=== PATIENT | male | born 1995 | race Caucasian/White ===

== ENCOUNTER 2016-06-05 19:26 | Emergency (ER) | payer OTHER ==
[2016-06-05] MEDS ORDERED: LIDOCAINE 2% MDV 20 ML VIAL As Ordered ONE (22:14)
--- NOTE | 2016-06-05 23:19 | EDDOCDS ---
Nurse's Notes [facility] Name: Claudio Rueda Age: 20 yrs Sex: Male : 1995 Arrival Date: 06/05/2016 Time: 19:26 Bed PD Private MD: Other - Complete Info On Cds Diagnosis: Laceration without foreign body of left thumb with damage to nail Presentation: 06/05 19:38 Presenting complaint: Patient states: using kitchen knife to open a box at approx 1830 jjr causing laceration to left thumb. Adult Sepsis Screening: The patient does not have new or worsening altered mentation. Patient's respiratory rate is less than 22. Systolic blood pressure is greater than 100. Patient has a qSOFA score of 0- Negative Sepsis Screen. Suicide/Homicide risk assessment- the patient denies having any suicidal and/or homicidal ideations and does not present with any other emotional, behavioral or mental health complaints. Status: The patient is an active duty environmental services manager. Transition of care: patient was not received from another setting of care. 19:38 Acuity: ZOYA Level 4 jjr 19:38 Method Of Arrival: Walkin/Carried/Asstd jjr Triage Assessment: 19:40 General: Appears in no apparent distress. Pain: Location: dorsal aspect of proximal jjr phalanx of left thumb. Pt Declines HIV testing. Musculoskeletal: Capillary refill < 3 seconds in left fingers. Historical: - Allergies: no known allergies; - Home Meds: 1. none - PMHx: none; - PSHx: none; - Social history: Smoking status: Patient states was never smoker of tobacco. No barriers to communication noted, The patient speaks fluent Kazakh. - Family history: Not pertinent. - : The pt / caregiver states he / she is not on anticoagulants. Home medication list is obtained from the patient. - Exposure Risk Screening:: None identified. Screenin:18 Screening information is obtained from the patient. Fall risk: No risks identified. ko2 Assistance ADL's: requires no assistance with activities of daily living. Abuse/DV Screen: The patient / caregiver reports he/she is: not in a situation that causes fear, pain or injury. Nutritional screening: No deficits noted. Advance Directives: Currently, there is no health care proxy. There is no active DNR order. There is no living will. There is no Power of Body Shop Worker. home support is adequate. Assessment: 23:00 General: Appears in no apparent distress, Behavior is cooperative. Neurological: Level ko2 of Consciousness is awake, alert. Respiratory: Airway is patent Respiratory effort is even, unlabored. Musculoskeletal: Range of motion limited in left hand. Vital Signs: 19:28 BP 143 / 77; Pulse 79; Resp 18 S; Temp 97.3(O); Pulse Ox 99% on R/A; Weight 88.45 kg gr2 (R); Height 6 ft. 1 in. (185.42 cm) (R); Pain 4/10; 22:36 BP 127 / 65; Pulse 64; Resp 16; Temp 96.8(T); Pulse Ox 98% on R/A; Pain 3/10; rw1 19:28 Body Mass Index 25.73 (88.45 kg, 185.42 cm) gr2 Vitals: 19:28 Log In Time: June 05, 2016 at 19:28. gr2 ED Course: 19:27 Patient visited by Francisco Javier Rivera. gr2 19:27 Patient moved to Waiting gr2 19:28 Other - Complete Info On Cds is Private Physician. gr2 19:29 Patient visited by Francisco Javier Rivera. gr2 19:30 Patient moved to Pre RCE gr2 19:39 Triage Initiated jjr 20:41 Patient moved to Radiology tmb 20:49 Patient moved to Pre RCE tmb 21:56 Claudio Steinberg PA is PHCP. mo1 21:56 Pernell Grande DO is Attending Physician. mo1 21:56 Patient moved to Triage 3 ko2 22:03 Patient visited by Vivian Guerrero RN. ko2 22:03 Patient moved to PD2 / ko2 22:05 Patient visited by Claudio Steinberg PA. mo1 22:51 [facility] Payment Agreement was scanned into [email or web address] and attached to record. gjb 23:18 The patient / caregiver is instructed regarding the plan of care and ED course. ko2 23:18 No IV's were initiated during this patient's visit. No procedures done that require ko2 assistance. Administered Medications: 22:35 Drug: Lidocaine 10 ml [lidocaine 20 mg/mL (2 %) injection solution (10 mL)] {Note: adm. rw1 by provider.} Route: Infiltration; 22:36 Follow up: Response: Pt left department before re-evaluation is appropriate rw1 Order Results: There are currently no results for this order. Outcome: 22:31 Discharge ordered by Provider. mo1 23:18 Discharge Assessment: Patient awake, alert and oriented x 3. No cognitive and/or ko2 functional deficits noted. Patient verbalized understanding of disposition instructions. patient administered narcotics - no. The following High Risk Discharge criteria are identified: None. Discharged to home ambulatory, with significant other. Condition: stable. Discharge instructions given to patient, Instructed on discharge instructions, follow up and referral plans. Demonstrated understanding of instructions, Pt was receptive of discharge instructions/ teaching. No special radiology studies were completed. Property sent home with patient. 23:19 Patient left the ED. ko2 Signatures: Paul Kellogg,INTERFACE ENGINEER INTERFACE ENGINEER rw1 Donna Rivera, RN Francisco Javier Dorado Michael, PA PA mo1 Oral Zaidi Kari, RN RN ko2 Eve Johnson [facility]
--- NOTE | 2016-06-05 23:19 | EDDOCDS ---
Physician Documentation [facility] Name: Claudio Rueda Age: 20 yrs Sex: Male : 1995 Arrival Date: 06/05/2016 Time: 19:26 Bed PD Private MD: Other - Complete Info On Cds Disposition: 06/05/16 22:31 Discharged to Home/Self Care. Impression: Laceration without foreign body of left thumb with damage to nail. - Condition is Stable. - Discharge Instructions: Laceration Care, Adult. - Medication Reconciliation, Local Pharmacy Hours form. - Follow up: Private Physician; When: Call to arrange an appointment; Reason: Recheck today's complaints, Continuance of care. - Problem is new. - Symptoms are unchanged. - Notes: sutures removed in 2 wks, do not bend thumb at risk of breaking sutures Historical: - Allergies: no known allergies; - Home Meds: 1. none - PMHx: none; - PSHx: none; - Social history: Smoking status: Patient states was never smoker of tobacco. No barriers to communication noted, The patient speaks fluent Gibraltarian. - Family history: Not pertinent. - : The pt / caregiver states he / she is not on anticoagulants. Home medication list is obtained from the patient. - Exposure Risk Screening:: None identified. Vital Signs: 06/05 19:28 BP 143 / 77; Pulse 79; Resp 18 S; Temp 97.3(O); Pulse Ox 99% on R/A; Weight 88.45 kg / gr2 195 lbs (R); Height 6 ft. 1 in. (185.42 cm) (R); Pain 4/10; 22:36 BP 127 / 65; Pulse 64; Resp 16; Temp 96.8(T); Pulse Ox 98% on R/A; Pain 3/10; rw1 19:28 Body Mass Index 25.73 (88.45 kg, 185.42 cm) gr2 Procedures: 22:33 Laceration repair:. mo1 Laceration: 22:33 Wound Repair of 3cm ( 1.2in ) full thickness laceration to dorsal aspect of proximal mo1 phalanx of left thumb. Distal neuro/vascular/tendon intact. Anesthesia: Local anesthetic administered with 2 mls of 2% lidocaine. Wound prep: Extensive cleansing with betadine by provider. Skin closed with 5 x 4-0 Prolene using Simple interrupted sutures. Dressed with Bacitracin. Patient tolerated well. MDM: 20:37 Fingers Ordered. EDMS 22:06 Lidocaine 20 mg/mL (2 %) 10 ml Infiltration once; to bedside ordered. mo1 22:31 Splint Affected Extremity ordered. mo1 22:51 [facility] Payment Agreement was scanned into [employer] and attached to record. gjb 22:51 Financial registration complete. gjb Administered Medications: 22:35 Drug: Lidocaine 10 ml [lidocaine 20 mg/mL (2 %) injection solution (10 mL)] {Note: adm. rw1 by provider.} Route: Infiltration; 22:36 Follow up: Response: Pt left department before re-evaluation is appropriate rw1 Signatures: Dispatcher [employer] EDDonna Haas, RN RN Claudio Way PA PA mo1 Vivian Guerrero RN RN koEve Metcalf Robert LPN rw1 The chart was reviewed and I authenticate all verbal orders and agree with the evaluation and treatment provided.Attachments: 22:51 [facility] Payment Agreement gjb MTDD
--- NOTE | 2016-06-06 07:47 | REP ---
Clinical: Trauma. Technique: AP, lateral, bilateral oblique views of the left first digit. Findings: No obvious acute fracture or dislocation. No subcutaneous emphysema or radiodense foreign body. Impression: No obvious acute fracture or dislocation. Signed by Jatin Velez MD 06/06/2016 07:38 A
--- NOTE | 2016-06-08 00:20 | EDDOCDS ---
Physician Documentation [facility] Name: Claudio Rueda Age: 20 yrs Sex: Male : 1995 Arrival Date: 06/05/2016 Time: 19:26 Bed PD Private MD: Other - Complete Info On Cds Disposition: 06/05/16 22:31 Discharged to Home/Self Care. Impression: Laceration without foreign body of left thumb with damage to nail. - Condition is Stable. - Discharge Instructions: Laceration Care, Adult. - Medication Reconciliation, Local Pharmacy Hours form. - Follow up: Private Physician; When: Call to arrange an appointment; Reason: Recheck today's complaints, Continuance of care. - Problem is new. - Symptoms are unchanged. - Notes: sutures removed in 2 wks, do not bend thumb at risk of breaking sutures Historical: - Allergies: no known allergies; - Home Meds: 1. none - PMHx: none; - PSHx: none; - Social history: Smoking status: Patient states was never smoker of tobacco. No barriers to communication noted, The patient speaks fluent Senegalese. - Family history: Not pertinent. - : The pt / caregiver states he / she is not on anticoagulants. Home medication list is obtained from the patient. - Exposure Risk Screening:: None identified. Vital Signs: 06/05 19:28 BP 143 / 77; Pulse 79; Resp 18 S; Temp 97.3(O); Pulse Ox 99% on R/A; Weight 88.45 kg / gr2 195 lbs (R); Height 6 ft. 1 in. (185.42 cm) (R); Pain 4/10; 22:36 BP 127 / 65; Pulse 64; Resp 16; Temp 96.8(T); Pulse Ox 98% on R/A; Pain 3/10; rw1 19:28 Body Mass Index 25.73 (88.45 kg, 185.42 cm) gr2 Procedures: 22:33 Laceration repair:. mo1 Laceration: 22:33 Wound Repair of 3cm ( 1.2in ) full thickness laceration to dorsal aspect of proximal mo1 phalanx of left thumb. Distal neuro/vascular/tendon intact. Anesthesia: Local anesthetic administered with 2 mls of 2% lidocaine. Wound prep: Extensive cleansing with betadine by provider. Skin closed with 5 x 4-0 Prolene using Simple interrupted sutures. Dressed with Bacitracin. Patient tolerated well. MDM: 20:37 Fingers Ordered. EDMS 22:06 Lidocaine 20 mg/mL (2 %) 10 ml Infiltration once; to bedside ordered. mo1 22:31 Splint Affected Extremity ordered. mo1 22:51 [facility] Payment Agreement was scanned into [employer] and attached to record. [facility] 22:51 Financial registration complete. [facility] 06/06 09:35 T-Sheet-- Draft Copy was scanned into [employer] and attached to record. gb Administered Medications: 06/05 22:35 Drug: Lidocaine 10 ml [lidocaine 20 mg/mL (2 %) injection solution (10 mL)] {Note: adm. rw1 by provider.} Route: Infiltration; 22:36 Follow up: Response: Pt left department before re-evaluation is appropriate rw1 Signatures: Dispatcher [employer] EDMS Suni Babcock, Donna Mello, RN RN Claudio Way PA PA mo1 Vivian Guerrero RN RN ko2 Eve Johnson gjb Paul Kellogg LPN rw1 The chart was reviewed and I authenticate all verbal orders and agree with the evaluation and treatment provided.Attachments: 22:51 [facility] Payment Agreement [facility] 06/06 09:35 T-Sheet-- Draft Copy gb Chart Complete MTDD
--- NOTE | 2016-06-08 00:20 | EDDOCDS ---
Nurse's Notes [facility] Name: Claudio Rueda Age: 20 yrs Sex: Male : 1995 Arrival Date: 06/05/2016 Time: 19:26 Bed PD Private MD: Other - Complete Info On Cds Diagnosis: Laceration without foreign body of left thumb with damage to nail Presentation: 06/05 19:38 Presenting complaint: Patient states: using kitchen knife to open a box at approx 1830 jjr causing laceration to left thumb. Adult Sepsis Screening: The patient does not have new or worsening altered mentation. Patient's respiratory rate is less than 22. Systolic blood pressure is greater than 100. Patient has a qSOFA score of 0- Negative Sepsis Screen. Suicide/Homicide risk assessment- the patient denies having any suicidal and/or homicidal ideations and does not present with any other emotional, behavioral or mental health complaints. Status: The patient is an active duty patient financial services specialist. Transition of care: patient was not received from another setting of care. 19:38 Acuity: ZOYA Level 4 jjr 19:38 Method Of Arrival: Walkin/Carried/Asstd jjr Triage Assessment: 19:40 General: Appears in no apparent distress. Pain: Location: dorsal aspect of proximal jjr phalanx of left thumb. Pt Declines HIV testing. Musculoskeletal: Capillary refill < 3 seconds in left fingers. Historical: - Allergies: no known allergies; - Home Meds: 1. none - PMHx: none; - PSHx: none; - Social history: Smoking status: Patient states was never smoker of tobacco. No barriers to communication noted, The patient speaks fluent Turkish. - Family history: Not pertinent. - : The pt / caregiver states he / she is not on anticoagulants. Home medication list is obtained from the patient. - Exposure Risk Screening:: None identified. Screenin:18 Screening information is obtained from the patient. Fall risk: No risks identified. ko2 Assistance ADL's: requires no assistance with activities of daily living. Abuse/DV Screen: The patient / caregiver reports he/she is: not in a situation that causes fear, pain or injury. Nutritional screening: No deficits noted. Advance Directives: Currently, there is no health care proxy. There is no active DNR order. There is no living will. There is no Power of Transformation Coach. home support is adequate. Assessment: 23:00 General: Appears in no apparent distress, Behavior is cooperative. Neurological: Level ko2 of Consciousness is awake, alert. Respiratory: Airway is patent Respiratory effort is even, unlabored. Musculoskeletal: Range of motion limited in left hand. Vital Signs: 19:28 BP 143 / 77; Pulse 79; Resp 18 S; Temp 97.3(O); Pulse Ox 99% on R/A; Weight 88.45 kg gr2 (R); Height 6 ft. 1 in. (185.42 cm) (R); Pain 4/10; 22:36 BP 127 / 65; Pulse 64; Resp 16; Temp 96.8(T); Pulse Ox 98% on R/A; Pain 3/10; rw1 19:28 Body Mass Index 25.73 (88.45 kg, 185.42 cm) gr2 Vitals: 19:28 Log In Time: June 05, 2016 at 19:28. gr2 ED Course: 19:27 Patient visited by Francisco Javier Rivera. gr2 19:27 Patient moved to Waiting gr2 19:28 Other - Complete Info On Cds is Private Physician. gr2 19:29 Patient visited by Francisco Javier Rivera. gr2 19:30 Patient moved to Pre RCE gr2 19:39 Triage Initiated jjr 20:41 Patient moved to Radiology tmb 20:49 Patient moved to Pre RCE tmb 21:56 Claudio Steinberg PA is PHCP. mo1 21:56 Pernell Grande DO is Attending Physician. mo1 21:56 Patient moved to Triage 3 ko2 22:03 Patient visited by Vivian Guerrero RN. ko2 22:03 Patient moved to PD2 / ko2 22:05 Patient visited by Claudio Steinberg PA. mo1 22:51 [facility] Payment Agreement was scanned into [employer] and attached to record. gjb 23:18 The patient / caregiver is instructed regarding the plan of care and ED course. ko2 23:18 No IV's were initiated during this patient's visit. No procedures done that require ko2 assistance. 06/06 08:06 Fingers Returned. EDMS 09:35 T-Sheet-- Draft Copy was scanned into [employer] and attached to record. gb Administered Medications: 06/05 22:35 Drug: Lidocaine 10 ml [lidocaine 20 mg/mL (2 %) injection solution (10 mL)] {Note: adm. rw1 by provider.} Route: Infiltration; 22:36 Follow up: Response: Pt left department before re-evaluation is appropriate rw1 Order Results: Radiology Order: Fingers Test: Fingers REASON FOR EXAMINATION: Trauma; Clinical: Trauma.; ; Technique: AP, lateral, bilateral oblique views of the left first digit.; ; Findings:; No obvious acute fracture or dislocation. No subcutaneous emphysema or; radiodense foreign body.; ; Impression:; No obvious acute fracture or dislocation.; ; ; Signed by; Jatin Velez MD 06/06/2016 07:38 A; Outcome: 22:31 Discharge ordered by Provider. mo1 23:18 Discharge Assessment: Patient awake, alert and oriented x 3. No cognitive and/or ko2 functional deficits noted. Patient verbalized understanding of disposition instructions. patient administered narcotics - no. The following High Risk Discharge criteria are identified: None. Discharged to home ambulatory, with significant other. Condition: stable. Discharge instructions given to patient, Instructed on discharge instructions, follow up and referral plans. Demonstrated understanding of instructions, Pt was receptive of discharge instructions/ teaching. No special radiology studies were completed. Property sent home with patient. 23:19 Patient left the ED. ko2 Signatures: Dispatcher [employer] EDMS Suni Babcock, Reg Reg gb aPul Kellogg,PHYSICAL SCIENCE PROFESSOR PHYSICAL SCIENCE PROFESSOR rw1 Donna Rivera, RN RN Francisco Javier Collado gr2 Claudio Steinberg PA PA mo1 Oral Zaidi Kari, RN RN ko2 Eve Johnson Chart Complete MTDD
--- NOTE | 2016-06-08 00:20 | EDDOCDS ---
Physician Documentation [facility] Name: Claudio Rueda Age: 20 yrs Sex: Male : 1995 Arrival Date: 06/05/2016 Time: 19:26 Bed PD Private MD: Other - Complete Info On Cds Disposition: 06/05/16 22:31 Discharged to Home/Self Care. Impression: Laceration without foreign body of left thumb with damage to nail. - Condition is Stable. - Discharge Instructions: Laceration Care, Adult. - Medication Reconciliation, Local Pharmacy Hours form. - Follow up: Private Physician; When: Call to arrange an appointment; Reason: Recheck today's complaints, Continuance of care. - Problem is new. - Symptoms are unchanged. - Notes: sutures removed in 2 wks, do not bend thumb at risk of breaking sutures Historical: - Allergies: no known allergies; - Home Meds: 1. none - PMHx: none; - PSHx: none; - Social history: Smoking status: Patient states was never smoker of tobacco. No barriers to communication noted, The patient speaks fluent Tanzanian. - Family history: Not pertinent. - : The pt / caregiver states he / she is not on anticoagulants. Home medication list is obtained from the patient. - Exposure Risk Screening:: None identified. Vital Signs: 06/05 19:28 BP 143 / 77; Pulse 79; Resp 18 S; Temp 97.3(O); Pulse Ox 99% on R/A; Weight 88.45 kg / gr2 195 lbs (R); Height 6 ft. 1 in. (185.42 cm) (R); Pain 4/10; 22:36 BP 127 / 65; Pulse 64; Resp 16; Temp 96.8(T); Pulse Ox 98% on R/A; Pain 3/10; rw1 19:28 Body Mass Index 25.73 (88.45 kg, 185.42 cm) gr2 Procedures: 22:33 Laceration repair:. mo1 Laceration: 22:33 Wound Repair of 3cm ( 1.2in ) full thickness laceration to dorsal aspect of proximal mo1 phalanx of left thumb. Distal neuro/vascular/tendon intact. Anesthesia: Local anesthetic administered with 2 mls of 2% lidocaine. Wound prep: Extensive cleansing with betadine by provider. Skin closed with 5 x 4-0 Prolene using Simple interrupted sutures. Dressed with Bacitracin. Patient tolerated well. MDM: 20:37 Fingers Ordered. EDMS 22:06 Lidocaine 20 mg/mL (2 %) 10 ml Infiltration once; to bedside ordered. mo1 22:31 Splint Affected Extremity ordered. mo1 22:51 [facility] Payment Agreement was scanned into [employer] and attached to record. [facility] 22:51 Financial registration complete. [facility] 06/06 09:35 T-Sheet-- Draft Copy was scanned into [employer] and attached to record. gb Administered Medications: 06/05 22:35 Drug: Lidocaine 10 ml [lidocaine 20 mg/mL (2 %) injection solution (10 mL)] {Note: adm. rw1 by provider.} Route: Infiltration; 22:36 Follow up: Response: Pt left department before re-evaluation is appropriate rw1 Signatures: Dispatcher [employer] EDMS Suni Babcock, Donna Mello, RN RN Claudio Way PA PA mo1 Vivian Guerrero RN RN ko2 Eve Johnson gjb Paul Kellogg LPN rw1 The chart was reviewed and I authenticate all verbal orders and agree with the evaluation and treatment provided.Attachments: 22:51 [facility] Payment Agreement [facility] 06/06 09:35 T-Sheet-- Draft Copy gb Chart Complete MTDD
== END 2016-06-05 23:19 | disposition home or self-care (01) ==
LOC: M ED 19:26
DX: S61.012A Laceration without foreign body of left thumb without damage to nail, initial encounter (principal); W26.0XXA Contact with knife, initial encounter; Y92.018 Other place in single-family (private) house as the place of occurrence of the external cause; Y93.89 Activity, other specified; Y99.8 Other external cause status

== ENCOUNTER → 2018-07-03 | Outpatient (CLI) | payer OTHER ==
--- NOTE | 2018-07-03 20:04 | REP ---
Clinical: Abdominal pain. Hernia. Technique: Axial noncontrast images from the lung bases to the pubic symphysis with coronal and sagittal re-formations. Findings: Lung bases are clear. Liver, spleen, pancreas, gallbladder, bilateral adrenal glands and kidneys are normal. The enteric system is without obstruction or acute inflammatory process. Normal terminal ileum and appendix are identified in the right lower quadrant. Pelvis demonstrates normal bladder and age appropriate prostate/seminal vesicles. 6 mm fat containing periumbilical hernia cannot be excluded. No inguinal hernia identified. Abdominal aorta without aneurysm. Musculoskeletal structures are intact. Impression: 1. Very small subcentimeter fat containing periumbilical hernia cannot be excluded. No further hernias are identified. 2. No further acute abdominopelvic pathology appreciated. Electronically Signed by Jatin Velez MD 07/03/2018 07:55 P
== END ==
LOC: M RAD 11:07
PROVIDERS: ATTEND Family Medicine
DX: R22.2 Localized swelling, mass and lump, trunk (principal)